=== PATIENT | male | born 1970 | race Hispanic/Latino ===

== ENCOUNTER 2018-03-05 14:10 | Inpatient (IN) | payer OTHER ==
[~2018-03-05] VITALS: Ht 182.9 cm; Wt 83.5 kg
[2018-03-05 04:19] VITALS: BP 155/87
[2018-03-05] MEDS: LISINOPRIL 2.5 MG TAB PO SCH ×2 (08:17→22:55)
[2018-03-05] MEDS ORDERED: ONDANSETRON HCL INJ 2 MG/ML VIAL IV STA (14:31)
[2018-03-05] MEDS ORDERED: MORPHINE SULFATE INJ 4 MG/ML INJ IV STA (14:31)
[2018-03-05] MEDS ORDERED: CLINDAMYCIN PHOS 900MG/ D5W 50 50 ML IV STA (14:31)
[2018-03-05 14:46] LABS: BASOPHILS % 0.5 % (0.0-1.0); EOSINOPHILS # (AUTO) 0.5 (0.0-0.4); EOSINOPHILS % 7.1 % (0.0-6.0); HEMATOCRIT 38.8 % (38.2-49.6); HEMOGLOBIN 13.5 g/dL (14.0-18.0); LYMPHOCYTES # (AUTO) 1.9 (1.0-3.2); LYMPHOCYTES % 29.2 % (18.0-39.1); MEAN CORPUSCULAR HEMOGLOBIN 30.6 pg (28-32); MEAN CORPUSCULAR HGB CONC 34.8 g/dL (31-35); MONOCYTES # (AUTO) 0.5 (0.2-0.8); MONOCYTES % 7.2 % (4.4-11.3); NEUTROPHILS # (AUTO) 3.6 (2.1-6.9); NEUTROPHILS % 55.7 % (38.7-80.0); PLATELET COUNT 280 x10e3/uL (140-360); RED BLOOD COUNT 4.41 x10e6/uL (4.3-5.7); RED CELL DISTRIBUTION WIDTH 11.9 % (11.7-14.4)
[2018-03-05 15:09] LABS: ALANINE AMINOTRANSFERASE 25 IU/L (0-55); ALBUMIN 3.6 g/dL (3.5-5.0); ALBUMIN/GLOBULIN RATIO 0.8 (0.8-2.0); ALKALINE PHOSPHATASE 153 IU/L (40-150); ANION GAP 14.8 mmol/L (8-16); BLOOD UREA NITROGEN 16 mg/dL (7-26); BUN/CREATININE RATIO 13 (6-25); CARBON DIOXIDE 25 mmol/L (22-29); CHLORIDE 102 mmol/L (98-107); CREATININE, SERUM 1.22 mg/dL (0.72-1.25); EST GLOMERULAR FILTRATION RATE > 60 ML/MIN (60-); GLUCOSE 344 mg/dL (74-118); POTASSIUM 4.8 mmol/L (3.5-5.1); SODIUM 137 mmol/L (136-145)
--- NOTE | 2018-03-05 15:37 | Diagnostic Imaging Report ---
PROCEDURE:X-RAY LEFT FOOT, COMPLETE COMPARISON:None. INDICATIONS:RULE OUT OSTEOMYELITIS, left foot infection FINDINGS: The area of concern was not indicated or marked. The calcaneus is intact with small posterior spur. The midfoot is intact. No fractures or dislocations of the digits. No lytic lesions or areas of periosteal new bone formation. Extensive vascular calcifications are present. No radiopaque foreign bodies in the soft tissues. No evidence of soft tissue ulceration by x-ray. CONCLUSION: No radiographic evidence of osteomyelitis. Bone scan or MRI are more sensitive modalities to identify osteomyelitis. Dictated by: Ryann Aranda M.D. on 03/05/2018 at 15:43 Electronically approved by: Ryann Aranda M.D. on 03/05/2018 at 15:43
[2018-03-05] MEDS ORDERED: ONDANSETRON HCL INJ 2 MG/ML VIAL IV PRN (16:30)
[2018-03-05] MEDS ORDERED: VANCOMYCIN 1GM/NS 250 ML 250 ML IV ONE (16:30)
[2018-03-05] MEDS ORDERED: MORPHINE SULFATE INJ 4 MG/ML INJ IV PRN (16:30)
[2018-03-05] MEDS ORDERED: DEXTROSE 50% SYRINGE 50 ML IV PRN (19:00)
--- NOTE | 2018-03-05 19:34 | History and Physical ---
CLINICAL HISTORY: This is a 48-year-old man, a patient of Dr. Tammi Berger, seen in the emergency room at [facility] because of left leg cellulitis that failed outpatient therapy including intramuscular injections. This patient has history of a nonhealing diabetic ulcer on the right toe for many years, followed by brick setter. This has, however, since healed and there appears to be a scab over the right toe. Four weeks ago, he had cellulitis, he thought due to ant bite in the right knee. This was treated with clindamycin with improvement and eventual resolution. Three weeks ago, he started having cellulitis in the left foot. This, however, failed to improve with clindamycin. Two days ago, he started getting intramuscular injections as well as oral Cipro together with clindamycin, also failing to improve. He was then sent to the emergency room through Dr. Berger's office today. PAST MEDICAL HISTORY: Remarkable for diabetes, hypertension, hyperlipidemia. He is also known to have peripheral vascular disease for which he takes Plavix which causes occasional gum bleeding. FAMILY HISTORY: Noncontributory. PERSONAL/SOCIAL HISTORY: Drinks occasionally, denies smoking. 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 He wears a steel toe boots. REVIEW OF SYSTEMS: Noncontributory. PHYSICAL EXAMINATION GENERAL: He is alert, coherent, appears to be comfortable. CARDIAC: Jugular veins are not distended. S1, S2, regular. There is no appreciable murmur. RESPIRATORY: Clear. ABDOMEN: Soft. Bowel sounds are present. EXTREMITIES: Show no cyanosis, clubbing or edema. The left dorsalis pedis and the right posterior tibial pulses are easily palpable. LABORATORY: White count 6500, hemoglobin 13.5, platelet count is 280,000. Electrolytes are negative. Glucose 344, alkaline phosphatase 153, total protein 8.3. X-ray of the left foot showed no evidence of osteomyelitis. IMPRESSION 1. Resistant left foot cellulitis after 3 weeks of outpatient antibiotics including combination of Cipro and clindamycin as well as intramuscular antibiotics. Cipro and intramuscular antibiotics, however, were only given recently. 2. History of diabetic foot ulcer right toe for over a year. 3. Recent right knee cellulitis, resolved. 4. Peripheral vascular disease, on Plavix. The patient, however, has palpable right posterior tibial and left dorsalis pedis pulses. 5. Diabetes, poorly controlled. 6. Hypertension. 7. Hyperlipidemia. RECOMMENDATIONS: MRI scan of the foot to rule out osteomyelitis and to rule out abscess. Infectious disease consultation. Intravenous antibiotics for the time being. Repeat Doppler study of the lower extremity arteries. Further control of blood sugar, possibly requiring insulin on a chronic basis. Job#: [id number] GE cc:MD TAMMI CHRISTINA MD
[2018-03-05 20:30] VITALS: BP 155/87
[2018-03-05 21:00] VITALS: BP 155/87
[2018-03-05] MEDS: INSULIN LISPRO 100 UNIT/1 ML 3ML VIAL SQ SCH (22:50)
[2018-03-06] VITALS (8 sets, daily range): BP systolic 114–147; BP diastolic 72–96
[2018-03-06] MEDS ORDERED: LOSARTAN POTASS25 MG PO (01:41)
[2018-03-06] MEDS ORDERED: CLINDAMYCIN HC150 MG PO (01:41)
[2018-03-06] MEDS ORDERED: LOVASTATIN20 MG PO (01:41)
[2018-03-06] MEDS ORDERED: GLYBURIDE5 MG PO (01:41)
[2018-03-06] MEDS ORDERED: METFORMIN HCL500 MG PO (01:41)
[2018-03-06] MEDS ORDERED: CIPRO500 MG PO (01:41)
[2018-03-06] MEDS: INSULIN LISPRO 100 UNIT/1 ML 3ML VIAL SQ SCH ×4 (07:45→21:00)
[2018-03-06] MEDS: METFORMIN HCL 500 MG TAB PO SCH ×2 (08:16→16:45)
[2018-03-06] MEDS: GLYBURIDE 5 MG TAB PO SCH (08:16)
[2018-03-06] MEDS: FLUCONAZOLE 100 MG TAB PO SCH (10:55)
[2018-03-06 11:11] LABS: HIV 1&2 AB SCREEN NON-REACTIVE (NONREACTIVE)
[2018-03-06] MEDS ORDERED: SODIUM CHLORIDE 0.9% 250ML 250 ML ONE (11:16)
[2018-03-06] MEDS: PIPER-TAZ 3.375 GM 50 ML IV SCH ×2 (11:31→21:05)
--- NOTE | 2018-03-06 11:44 | Consultation ---
DATE OF CONSULTATION: March 06, 2018 REASON FOR CONSULTATION: Cellulitis. Thank you Dr. Zuluaga for asking me to see this patient. HISTORY: The patient is a 48-year-old man referred for cellulitis. He presented to the emergency department yesterday with swelling and redness of the left foot. He denies of fever, chills and pain. He developed these symptoms initially about three weeks ago. He had been treated outpatient with intramuscular ceftriaxone, oral ciprofloxacin and oral clindamycin respectively. The patient had initial response each time but symptoms returned after completing the course of antibiotics. He denies trauma. PAST MEDICAL HISTORY: Diabetes mellitus type 2, hypertension, hyperlipidemia and peripheral arterial disease. PAST SURGICAL HISTORY: None. ALLERGIES: NO KNOWN DRUG ALLERGIES. MEDICATIONS: He received vancomycin 1 gram IV piggyback once and clindamycin 900 mg IV piggyback once in the emergency room. FAMILY HISTORY: Noncontributory. SOCIAL HISTORY: No tobacco use. He drinks alcohol occasionally. No recreational drug use. REVIEW OF SYSTEMS: As per history of present illness. PHYSICAL EXAMINATION GENERAL: No acute distress. VITAL SIGNS: T-max 98.4, pulse 75, respiratory rate 20, blood pressure 114/73. Weight 84 pounds. HEENT: Normocephalic. There is no icterus or injection of conjunctivae. There is no ear or nasal discharge. Moist oral mucosa. No pharyngeal erythema or exudate. NECK: Supple. No lymphadenopathy or meningismus. LUNGS: Clear to auscultation bilaterally. HEART: Normal S1 and S2. Regular. ABDOMEN: Soft and nontender. EXTREMITIES: There is trace edema of the left foot with erythema of the left forefoot. There is no edema, clubbing or cyanosis of the rest of the extremities. The dorsalis pedis and posterior tibial pulses are difficult to palpate in both feet. SKIN: As per extremities. [facility] AN[facility]AL CARE: Awake, alert and oriented to person, place and time. There is decreased sensation on monofilament examination bilaterally of the feet and ankle. Nonfocal. LABORATORY AND DIAGNOSTICS: 03/05/2018, WBC 6510, hemoglobin 13.5 and platelets 280,000, neutrophils 55.7, lymphocytes 29.2, monos 7.2, eosinophils 7.1, basophils 0.5, BUN 16, creatinine 1.2, blood glucose 248. X-rays of the left foot showed no evidence of osteomyelitis. IMPRESSION 1. Left foot cellulitis. 2. Tinea pedis. 3. Diabetes mellitus type 2, uncontrolled. 4. Peripheral arterial disease. PLAN: 1. Change vancomycin to 1250 mg IV piggyback q.24 hours. Start Zosyn 3.375 grams IV piggyback q.8 hours, and fluconazole 200 mg orally daily. 2. Suggest HIV screening. 3. Patient may need podiatry consult as outpatient. Job#: [id number] SKI
--- NOTE | 2018-03-06 12:19 | Cardiology Report ---
DATE OF STUDY: March 05, 2018 DOPPLER SCAN OF LOWER EXTREMITY ARTERIES ATTENDING PHYSICIAN: Dr. Tammi Berger. A 48-year-old male. The lower extremity arteries were interrogated using a duplex scanning method. The left posterior tibial artery showed velocity of 2.7 meters per second with distal waveforms being biphasic. However, the left anterior tibial artery had monophasic waveform with velocity in the range of 45 to 48 cm per second. In the right leg, the velocities were in the normal range with biphasic and triphasic waveforms throughout. CONCLUSIONS 1. Small vessel disease involving the proximal left posterior tibial artery with velocity of 2.79 meters per second as well as the mid distal left anterior tibial artery with monophasic biphasic waveform. 2. No high-grade stenosis or flow impairment based on waveforms elsewhere in the lower extremity arteries bilaterally. Job#: [id number] TA cc:TAMMI BERGER MD cc:MARCIAL JACOBS MD
--- NOTE | 2018-03-06 15:07 | Diagnostic Imaging Report ---
TECHNIQUE: Magnetic resonance imaging of the LEFT foot was performed WITHOUT injected contrast. HISTORY: Left foot pain COMPARISON: None available. DISCUSSION: Edema within the first intermetatarsal space. Bone marrow edema, mild, within the phalanges of the first and second toe. No T1 replacement. Intermetatarsal space bursitis. Atrophy of the foot musculature. IMPRESSION: Edema/cellulitis predominantly in the medial forefoot. Mild edema in the phalanges of the first and second toe likely reactive. No osteomyelitis. Signed by: Dr. Stanley Mancia M.D. on 03/06/2018 3:04 PM
[2018-03-06] MEDS ORDERED: VANCOMYCIN HCL 1.25 GM in SODIUM CHLORIDE 0.9% 250ML 250 ML IV SCH (17:00)
[2018-03-07] VITALS: BP 139/89
[2018-03-07 04:00] VITALS: BP 111/78
[2018-03-07] MEDS: PIPER-TAZ 3.375 GM 50 ML IV SCH ×2 (04:20→12:00)
[2018-03-07] MEDS: INSULIN LISPRO 100 UNIT/1 ML 3ML VIAL SQ SCH ×2 (07:30→12:00)
[2018-03-07 08:07] VITALS: BP 142/84
[2018-03-07 08:15] VITALS: BP 142/84
[2018-03-07] MEDS: GLYBURIDE 5 MG TAB PO SCH (09:05)
[2018-03-07] MEDS: METFORMIN HCL 500 MG TAB PO SCH (09:05)
[2018-03-07] MEDS: LISINOPRIL 2.5 MG TAB PO SCH (09:05)
[2018-03-07] MEDS: FLUCONAZOLE 100 MG TAB PO SCH (09:05)
--- NOTE | 2018-03-07 09:14 | Consultation ---
DATE OF CONSULTATION: March 07, 2018 HISTORY OF PRESENT ILLNESS: This is a 48-year-old male with past medical history of type-2 diabetes, peripheral neuropathy, hypertension, peripheral vascular disease, and hyperlipidemia. He was admitted through the emergency room 2 days ago for worsening infection to his left foot. The patient relates to having a history of right foot infection in the past, which he has been seeing a hogshead mat assembler for. He relates 2 to 3 weeks ago having pain and swelling to his left foot. 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 The patient relates that he is in shoes and socks the majority of the time. He relates to getting IM antibiotic injections from his primary care's office which seem to resolve temporarily; but when the antibiotics wore off, the infection recurred. He currently denies pain, nausea, vomiting, fever, chills, chest pain or shortness of breath. PAST MEDICAL HISTORY: Type-2 diabetes, peripheral neuropathy, hypertension, hyperlipidemia, peripheral vascular disease. FAMILY HISTORY: Type-2 diabetes. SOCIAL HISTORY: Denies smoking. Occasional alcohol use. 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 REVIEW OF SYSTEMS: The patient currently denies nausea, vomiting, fever, chills, chest pain and shortness of breath. PHYSICAL EXAMINATION GENERAL: Alert and oriented times 3, in no apparent distress. VITAL SIGNS: Today, temperature is 96.6, heart rate 69, respiratory rate 17, blood pressure 142/84. Pulse ox is 98% on room air. PROBLEM-FOCUSED LOWER EXTREMITY PHYSICAL EXAMINATION VASCULAR: Dorsalis pedis and posterior tibial pulses are faintly palpable. Capillary refill time is 3 to 4 seconds to all digits. Negative erythema, edema or warmth is noted to the patient's left foot. NEUROLOGIC: Sensation is absent to light touch. MUSCULOSKELETAL: Negative pain on palpation. DERMATOLOGICAL: A macerated interspace is noted between the 1st and 2nd digits with peeling skin. There is skin discontinuity. Upon expression of the 1st interspace, no drainage was noted. Less than 2 cm of erythema, edema and warmth is noted. LABS: White blood cell count is 6.5, hemoglobin 13.5, hematocrit 38.8, platelet count 280. Glucose is 248. X-RAYS: Two views were taken of the patient's right foot which reveal no evidence of any osteolytic changes consistent with osteomyelitis. Arterial Dopplers reveal small vessel disease involving the left posterior tibial artery and left anterior tibial artery with monophasic waveforms. No high-grade stenosis or flow impairment based on waveforms elsewhere in the lower extremities bilaterally. MRI reveals no evidence of acute osteomyelitis. No evidence of abscess formation. ASSESSMENT 1. Left foot cellulitis due to interspace infection likely from chronic tinea pedis. 2. Type-2 diabetes and peripheral neuropathy. 3. Peripheral vascular disease. PLAN: The patient was seen and evaluated. Discussed condition and treatment options with the patient in detail. At this point, utilizing Hibiclens solution, the left foot was scrubbed and cleaned, and all dry, scaly skin was removed. The wound was explored, and no active purulent drainage was noted at this time. The wound was dressed with a Betadine wet-to-dry dressing for sufficient drying of the area. Discussed with the patient that we will continue IV antibiotics and local wound care. The patient must follow up with a hogshead mat assembler on a regular basis. 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 Discussed with the patient general hygiene considerations such as allowing the feet to air dry, frequent changing of socks, and recommend soaks with warm water and vinegar. Recommend 24 to 48 hours of IV antibiotics with local wound care before discharge. The podiatry service will continue to follow as an inpatient. Job#: [id number]
[2018-03-07] MEDS ORDERED: DIFLUCAN100 MG PO (09:23)
--- NOTE | 2018-03-07 10:36 | Discharge Summary ---
CLINICAL HISTORY: This is a 48-year-old man admitted via the emergency room because of persistent cellulitis failing outpatient therapy. Please refer to my previous dictation concerning details of current illness, past medical history, personal and social history, family history, review of systems, physical examination, initial laboratory studies. HOSPITAL COURSE: The patient was seen in consultation by infectious disease merchandising consultant, Dr. Dangelo Pink, and by podiatry. MRI scan showed no osteomyelitis. Ultrasound of lower extremities showed the same. X-ray also showed no osteomyelitis. The patient made marked improvement in progress. He never had any fever and no leukocytosis. His cellulitic area appears to be improved. He is discharged to be followed by podiatry and his primary care physician, on antibiotics prescribed by infectious disease merchandising consultant. DISCHARGE DIAGNOSES: Same as on admission. WESTLEY BLACKWOOD MD Job#: [id number] cc:MD CHARLIE FINK DPM
[2018-03-07] MEDS ORDERED: MINOCYCLINE HCL50 MG PO (11:03)
[2018-03-07] MEDS ORDERED: lamisil TOP (11:38)
== END 2018-03-07 13:20 | disposition home or self-care (01) | DRG 603 ==
LOC: ER 14:10 → ERHOLD 16:17 → MED/SURG2 20:04
PROVIDERS: ADMIT Internal Medicine Cardiovascular Disease; ATTEND Internal Medicine Cardiovascular Disease
DX: L03.116 Cellulitis of left lower limb (principal); B35.3 Tinea pedis; I73.9 Peripheral vascular disease, unspecified; E11.42 Type 2 diabetes mellitus with diabetic polyneuropathy; Z79.4 Long term (current) use of insulin; E11.51 Type 2 diabetes mellitus with diabetic peripheral angiopathy without gangrene; E78.5 Hyperlipidemia, unspecified; E11.65 Type 2 diabetes mellitus with hyperglycemia; I10 Essential (primary) hypertension
CPT/HCPCS: 36415; 80053; 82948; 85025; 87040; 87390; 93925; 96365; 99284; G0433; G0435; J2270; J2405; J2543; J3370; J7050